=== PATIENT | male | born 1945 | race Caucasian/White ===

== ENCOUNTER 2018-09-03 22:27 | Inpatient (IN) | payer MEDICARE, BC ==
[~2018-09-03] VITALS: Ht 190.5 cm; Wt 131.5 kg
--- NOTE | ~2018-09-03 | EC ---
PATIENT:DANIELLE BOX DATE OF SERVICE: 09/03/18 SEX: M MEDICAL RECORD: [id number] DATE OF : [birth year] LOCATION:D. D.211 AGE OF PATIENT: 73 ADMISSION DATE: 09/03/18 REFERRING PHYSICIAN: INTERPRETING PHYSICIAN: MELINDA QUIÑONES MD ECHOCARDIOGRAM REPORT ECHO CHARGES 4 ECHO COMPLETE Date: 09/04/18 CLINICAL DIAGNOSIS: A-FIB ECHOCARDIOGRAPHIC MEASUREMENTS (adult normal given) AC root (d.<3.7cm) 3.3 cm LV Septum d (<1.2 cm> 1.6 cm Valve Excursion 2.0 cm LV Septum (systole) 2.1 cm Left Atria (s.<4.0cm> 4.5 cm LVPW d(<1.2cm) 1.5 cm RV (d.<2.3cm) 3.0 cm LVPW (sytole) 1.8 cm LV diastole(<5.6CM) 4.9 cm MV E-F(>70mm/sec) cm LV systole 3.3 cm LVOT Diameter 1.9 cm MV exc.(>10mm) cm Est.ejection fraction (50-75%) % DOPPLER: LVIT cm/sec A cm/sec E 96.0 cm/sec LA cm/sec RVSP 15.3 mmHg LVOT 93.0 cm/sec AOP1/2T m/s Asc. Ao 120 cm/sec RVOT 62.0 cm/sec RA cm/sec PA 85.0 cm/sec AV Gradient Peak 5.7 mmHg AV Mean 2.2 mmHg AV Area 2.7 cm MV Gradient Peak 3.8 mmHg MV Mean 1.4 mmHg MV Area cm COMMENTS: Taxicab Starter: Messi JOHNSONOE [employer] Operator: 1 Dr. Quiñones TAPE# PACS Pericardial Effusion N DATE OF SERVICE: 09/04/2018 FINDINGS: 1. Left ventricular chamber size is within normal limits. Left ventricular systolic function is normal. Overall ejection fraction estimated at 50%. 2. Left atrium is enlarged at 4.5 cm. Right atrium and right ventricular chamber sizes are within normal limits. 3. Valvular structures have normal structure and motion. 4. Doppler interrogation reveals no significant valvular insufficiency or stenosis. ECHOCARDIOGRAM REPORT [id number] DANIELLE BOX 5. No evidence of pericardial effusion or left ventricular thrombus. TRANSINT:[id number] Voice Confirmation ID: [id number] DOCUMENT ID: [id number] MELINDA QUIÑONES MD CC: [id number] DICTATION DATE: 09/05/18 1153 PUBLIC HOUSING INTERVIEWER: 09/05/18 1211 ADM IN [facility] [address] [id number]
--- NOTE | ~2018-09-03 | ST ---
PATIENT:DANIELLE BOX MEDICAL RECORD: [id number] SEX: M LOCATION:D. D.211 ORDER #: ADMISSION DATE: 09/03/18 AGE OF PATIENT: 73 REFERRING PHYSICIAN: INTERPRETING PHYSICIAN: MELINDA WATKINS MD DATE OF SERVICE: 09/04/2018 PROCEDURE: Nuclear stress test. INDICATION: Angina, atrial fibrillation. PROCEDURE IN DETAIL: The patient was exercised on standard Lexiscan protocol with 27 mCi of sestamibi injected at peak stress. Rest images were done previously with 12 mCi. FINDINGS: Gated SPECT reveals preserved ejection fraction at 57% with good wall motion and thickening and brightening throughout all segments. SPECT imaging Cardiolite was used as myocardial fusion agent. There is homogeneous uptake throughout all segments at rest and stress with no evidence of inducible ischemia or previous infarction. OVERALL IMPRESSION: 1. This is a normal nuclear stress test with no evidence of inducible ischemia or previous infarction. 2. Gated SPECT reveals a preserved ejection fraction at 57%. In this patient with ongoing symptomatology, the current scan does not suggest the presence of hemodynamically significant coronary artery disease. Evaluate noncardiac etiology of chest pain. TRANSINT:[id number] Voice Confirmation ID: [id number] DOCUMENT ID: [id number] MELINDA WATKINS MD CC: [id number] DICTATION DATE: 09/06/18 1010 HEAD OF QUALITY: 09/06/181956 DIS IN 09/05/18 [facility] [address] [place] [address]
[2018-09-03] MEDS ORDERED: [UNRECOGNIZED DRUG - OTHER] (22:33)
[2018-09-04 00:37] LABS: CKMB 2.4 U/L (0.0-3.6); CREATINE KINASE 121 UL (21-232); TROPONIN-I 0.016 ng/mL (0.000-0.060)
[2018-09-04 00:42] VITALS: BP 149/81; BMI 36.3
[2018-09-04 06:26] LABS: BASOPHILS 0.4 % (0-2); EOSINOPHILS 1.2 % (0-7); HEMATOCRIT 44.1 % (42.0-54.0); IMMATURE GRANULOCYTES 0.1 % (0-5); LYMPHOCYTES 32.5 % (15-50); MCH 30.7 pg (26.0-34.0); MCV 90.4 fL (80.0-100.0); MEAN PLATELET VOLUME 11.3 fL (7.4-10.4); MONOCYTES 13.8 % (2-11); PLATELET COUNT 228 10x3/uL (130-400); RBC 4.88 10x6/uL (4.20-6.10); RDW 13.2 % (11.5-14.5); WBC 7.2 10x3/uL (4.8-10.8)
[2018-09-04 07:21] LABS: ALBUMIN 3.2 g/dL (3.4-5.0); ALKALINE PHOSPHATASE 97 U/L (46-116); ALT (SGPT) 28 U/L (10-68); BILIRUBIN - TOTAL 0.37 mg/dL (0.2-1.3); CALC OSMOLALITY 280 mosm/kg (275-300); CALCIUM 9.3 mg/dL (8.5-10.1); CHLORIDE - SERUM 105 mmol/L (98-107); CKMB 2.2 U/L (0.0-3.6); CREATINE KINASE 108 UL (21-232); CREATININE - SERUM 0.8 mg/dL (0.6-1.3); GLUCOSE 111 mg/dL (74-106); PROTEIN - SERUM 6.3 g/dL (6.4-8.2); SODIUM 140 mmol/L (136-145); UREA NITROGEN 15 mg/dL (7-18); eGFR NON AFRICAN AMERICAN > 90 mL/min (90-120)
[2018-09-04 07:22] LABS: TROPONIN-I < 0.017 ng/mL (0.000-0.060)
[2018-09-04 10:52] VITALS: BMI 36.2
[2018-09-04 12:18] LABS: CKMB 1.9 U/L (0.0-3.6); CREATINE KINASE 88 UL (21-232); TROPONIN-I < 0.017 ng/mL (0.000-0.060)
[2018-09-04 12:43] VITALS: BP 143/83
[2018-09-04 15:43] VITALS: Ht 190.5 cm; Wt 131.5 kg
[2018-09-04 20:00] VITALS: BP 137/70
[2018-09-04 23:30] VITALS: BP 119/67
[2018-09-05 04:20] VITALS: BP 120/65
[2018-09-05 04:26] LABS: BASOPHILS 0.3 % (0-2); EOSINOPHILS 1.7 % (0-7); HEMATOCRIT 42.8 % (42.0-54.0); IMMATURE GRANULOCYTES 0.1 % (0-5); MCH 30.5 pg (26.0-34.0); MCHC 32.7 g/dL (31.0-37.0); MCV 93.2 fL (80.0-100.0); MEAN PLATELET VOLUME 11.1 fL (7.4-10.4); NEUTROPHILS 52.9 % (40-80); PLATELET COUNT 197 10x3/uL (130-400); RBC 4.59 10x6/uL (4.20-6.10); RDW 13.5 % (11.5-14.5); WBC 7.2 10x3/uL (4.8-10.8)
[2018-09-05 04:36] LABS: CALC OSMOLALITY 277 mosm/kg (275-300); CALCIUM 9.2 mg/dL (8.5-10.1); CARBON DIOXIDE 23.2 mmol/L (21.0-32.0); CHLORIDE - SERUM 106 mmol/L (98-107); CREATININE - SERUM 0.8 mg/dL (0.6-1.3); GLUCOSE 101 mg/dL (74-106); POTASSIUM - SERUM 3.9 mmol/L (3.5-5.1); SODIUM 138 mmol/L (136-145); UREA NITROGEN 17 mg/dL (7-18); eGFR NON AFRICAN AMERICAN > 90 mL/min (90-120)
[2018-09-05 08:54] VITALS: BP 124/58
[2018-09-05 11:41] VITALS: BP 131/66
[2018-09-05 12:05] LABS: APPEARANCE CLEAR (CLEAR); BILIRUBIN NEGATIVE (NEGATIVE); COLOR YELLOW (YELLOW); GLUCOSE 50 mg/dL (NEGATIVE); KETONE NEGATIVE (NEGATIVE); NITRITE NEGATIVE (NEGATIVE); PROTEIN NEGATIVE (NEGATIVE); SPECIFIC GRAVITY 1.025 (1.005-1.020); UROBILINOGEN NORMAL (NORMAL)
[2018-09-05] MEDS ORDERED: AVODART0.5 MG PO ×2 (12:25→12:26)
[2018-09-05] MEDS ORDERED: BETAPACE 80 MG80 MG PO (12:44)
--- NOTE | 2018-09-05 15:47 | MORECARE ---
CASE MANAGEMENT DISCHARGE SUMMARY PATIENT: DANIELLE BOX UNIT: [id number] ADM DATE: 09/03/18 AGE: 73 : [birth year] SEX: M ROOM/BED: D.2116 AUTHOR: CR BUSH PHYSICIAN: REFERRING PHYSICIAN: RUBY PETERSON MD DATE OF SERVICE: 09/05/18 Discharge Plan Patient Name: DANIELLE BOX Facility: [facility]:[place] : 1945 Planned Disposition: Anticipated Discharge Date: Discharge Date: 09/05/2018 Expected LOS: Initial Reviewer: [email or web address] Initial Review Date: 09/04/2018 Generated: 09/05/18 4:47 pm Coverage Notice Reviewer: [email or web address] Jacob Porras Notice Issued Date-Time: 09/05/2018 12:25 Notice Type: IM Discharge Notice Notice Delivered To: Patient Relationship to Patient: Self [employer] Name: Delivery Method: HAND - Hand Delivered Ness Days: Prior Verbal Notification: Recipient Understood Notice: Yes Recipient Signature: Yes Med Rec Note Co-signed by Attending: Coverage Notice Comment: Patient Name: DANIELLE BOX Page [phone] at 1547 All edits/amendments must be made on the electronic document DICTATION DATE: 09/05/181545 TRAINING ANALYST: DIRK 09/05/18 1546 RPT#: [id number] DC DATE:09/05/18 STATUS: DIS IN [facility] [address] [place] [address] END OF REPORT
== END 2018-09-05 14:04 | disposition home or self-care (01) | DRG 310 ==
LOC: D.ER 22:27 → D.M2 23:17
PROVIDERS: Family Medicine; ADMIT Internal Medicine Nephrology; ATTEND Internal Medicine Nephrology
DX: I48.91 Unspecified atrial fibrillation (principal); Z85.46 Personal history of malignant neoplasm of prostate

== ENCOUNTER 2020-08-28 09:47 | Day surgery (SDC) | payer MEDICARE, BC ==
[2020-08-25 10:33] LABS: ANION GAP 12.8 mmol/L (8-16); CALCIUM 9.7 mg/dL (8.5-10.1); CARBON DIOXIDE 28.2 mmol/L (21.0-32.0); CREATININE - SERUM 1.1 mg/dL (0.6-1.3)
[2020-08-25 10:36] LABS: INR 1.19 (0.85-1.17)
[2020-08-25 10:37] LABS: APTT 29.8 SECONDS (22.8-39.4)
[2020-08-25 10:47] LABS: BASOPHILS 0.3 % (0-2); HEMATOCRIT 43.6 % (42.0-54.0); HEMOGLOBIN 14.4 g/dL (13.5-17.5); IMMATURE GRANULOCYTES 0.2 % (0-5); LYMPHOCYTES 25.7 % (15-50); MCH 30.4 pg (26.0-34.0); MCV 92.2 fL (80.0-100.0); MEAN PLATELET VOLUME 11.1 fL (7.4-10.4); MONOCYTES 13.3 % (2-11); NEUTROPHIL ABS# 3.52 10x3/uL (1.78-5.38); NEUTROPHILS 56.5 % (40-80); PLATELET COUNT 229 10x3/uL (130-400); RBC 4.73 10x6/uL (4.20-6.10); RDW 13.4 % (11.5-14.5); WBC 6.2 10x3/uL (4.8-10.8)
[~2020-08-28] VITALS: Ht 188 cm; Wt 127.9 kg
[~2020-08-28 09:47] MED LIST: AVODART0.5 MG PO; AZITHROMYCIN500 MG PO; BAYER CHEWABLE81 MG PO; BETAPACE 80 MG80 MG PO; COZAAR100 MG PO; DECADRON4 MG PO; HCTZ25 MG PO; MUCINEX600 MG PO; OMNICEF300 MG PO; SYMBICORT 80-10.2 GM INH; TESSALON PERLE100 MG PO; VALTREX1000 MG PO; VENTOLIN HFA [SP8 GM INH; XARELTO20 MG PO; [UNRECOGNIZED DRUG - OTHER]
[2020-08-28 12:00] VITALS: BP 137/70; Ht 188 cm; Wt 127.9 kg
[2020-08-28] MEDS ORDERED: BETAPACE 80 MG80 MG (12:07)
--- NOTE | 2020-08-28 16:50 | NUR ---
PT HR DROPPING TO UPPER 30S. REPORTED TO CHAYO IN ANESTHESIA WHO ADMINISTERED MEDICATION. 1715 DC TEACHING. PT AND VERBALIZED UNDERSTANDING. DR. MOULTON'S OFFICE WAS CLOSED, INFORMED PT/ TO CALL THE OFFICE TOMORROW TO SET UP F/U APPT. 1720 PT UP TO VOID WITH ASSISTANCE OF THIS NURSE AND PTS [address] MAY- PT UMBILICAL STERISTRIP LOOSE, INCISION SITE SMALL GAPING WITH SMALL BRIGHT RED BLOOD AROUND AREA AND ON GOWN. 173 DR MAY AT BEDSIDE 1744 FROM SURGERY CLEANED UMBILICAL INCISION SITE AND APPLIED DERMABOND AND BANDAID 1749 PIV REMOVED WITH CATHETER INTACT. HELPING PT TO DRESS. 1601 DC'D PT VIA WC BY THIS NURSE TO POV WITH DRIVING. PT/ HAVE ALL BELONGINGS & DC PACKET.
--- NOTE | 2020-09-25 09:27 | OP ---
PATIENT NAME: DANIELLE BOX MEDICAL RECORD: [id number] :[birth year] LOCATION:[facility] ADMISSION DATE: SURGEON: LAITH MAY MD DATE OF OPERATION: 08/28/2020 PREOPERATIVE DIAGNOSIS: Symptomatic gallstones. POSTOPERATIVE DIAGNOSES: Symptomatic gallstones with hepatomegaly. PROCEDURES: 1. Laparoscopic cholecystectomy. 2. Intraoperative cholangiography without immediate surgeon interpretation. 3. A 14-gauge core needle liver biopsy. SURGEON: Laith May MD CHICKEN FANCIER: None. BLOOD LOSS: Please see the anesthesia sheet. COMPLICATIONS: None. Indication for the liver biopsy was hepatomegaly. The risks, possible complications, and alternatives of the procedure were explained to the patient. He elects to proceed. OPERATIVE COURSE: The patient was conveyed to the operating room electively on 08/28/2020. General anesthesia was induced by the anesthesia staff. The abdomen was sterilely prepped and draped. A small skin incision was accomplished in the left upper quadrant. A Veress needle was inserted through the skin incision into the peritoneal cavity. CO2 insufflation was begun. Once a sufficient pneumoperitoneum had been achieved, a 5-mm trocar was inserted through this incision in the left upper quadrant. Under direct internal vision utilizing a television camera, a 12-mm trocar was inserted through the incision at the umbilicus. A 5-mm trocar was inserted in the epigastrium. Another 5-mm trocar was inserted far laterally in the right upper quadrant. During insertion of the Veress needle and all trocars, there appeared to have been no injury to the bowels, any intraperitoneal or retroperitoneal structures. Abdominal survey was undertaken. The indication for the liver biopsy was hepatomegaly. Under laparoscopic guidance, I percutaneously accessed the right upper quadrant utilizing a 14-gauge core needle biopsy device. Cores were obtained over the convexity of the liver. The biopsy sites were made hemostatic with electrocautery. I then advanced a cholangiogram trocar. I punctured the fundus of the gallbladder. I aspirated bile. I then injected dye. Under real time fluoroscopy static fluoroscopic images were obtained. These are cholangiographic images that were sent to the radiologist for interpretation. The cholangiogram trocar was removed. I then grasped the gallbladder and pulled it cephalad. Infundibulum was grasped and retracted laterally. Blunt dissection was begun in the triangle of Calot. One cystic artery and one cystic duct were identified. These were clipped multiply and divided between clips. OPERATIVE REPORT [id number] DANIELLE BOX The gallbladder was then excised from its bed in the liver. It was placed within a bag retrieval device and was withdrawn through the umbilical fascial defect. The 12-mm trocar was then readvanced. I irrigated and then aspirated in the right upper quadrant. There was no bleeding even at low pressure of 8. The 12-mm trocar was removed. Utilizing the Ihsan-Reuben suture closure device and 0 Vicryl sutures, the fascia was closed. The other trocars were removed. The skin at the umbilicus was closed with interrupted 4-0 Vicryl Rapide sutures. The other skin incisions were closed with interrupted intracuticular 3-0 Vicryls. Benzoin and Steri-Strips were applied. The patient was then extubated and conveyed to the post-anesthesia care unit where he was in stable condition. TRANSINT:[id number] Voice Confirmation ID: [id number] DOCUMENT ID: [id number] LAITH MAY MD at 0927 CC: [id number] DICTATION DATE: 09/25/20613 BANQUET MANAGER: 09/25/20 0839 [facility] 08/28/20 [facility] [address] [place] [address]
== END 2020-08-28 18:01 | disposition home or self-care (01) ==
LOC: D.OPS 09:47
PROVIDERS: Anesthesiology; ATTEND Surgery
DX: K80.20 Calculus of gallbladder without cholecystitis without obstruction (principal); I10 Essential (primary) hypertension; I48.91 Unspecified atrial fibrillation